=== PATIENT | female | born 1950 | race Caucasian/White ===

== ENCOUNTER 2018-01-02 09:27 | Emergency (ER) | payer MEDICARE, OTHER ==
[2018-01-02 09:45] VITALS: BP 124/91
--- NOTE | 2018-01-02 10:09 | RAD ---
HISTORY: INJURY TO RIGHT ARM COMPARISONS: None VIEWS: 2, Frontal internal rotation and external rotation views of the right humerus FINDINGS: BONE DENSITY: Normal. BONES: There is no displaced fracture. 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 ALIGNMENT: There is no dislocation. SOFT TISSUES: Unremarkable. OTHER FINDINGS: None. IMPRESSION: OSTEOARTHRITIS. NO ACUTE OSSEOUS INJURY. IF SYMPTOMS PERSIST, RECOMMEND REPEAT IMAGING.
--- NOTE | 2018-01-02 10:25 | UC ---
Upper Extremity HPI - HPI Summary HPI Summary: RIGHT ARM PAIN X 2 DAYS JAMMED HER RIGHT ARM AT WORK SHE WAS STAKING BEER PAIN RIGHT UPPER ARM RADIATING TO HER SHOULDER - History of Current Complaint Chief Complaint: UCUpperExtremity Stated Complaint: RIGHT ARM INJURY Time Seen by Provider: 01/02/18 09:47 Hx Obtained From: Patient Onset/Duration: Sudden Onset, Lasting Days - 2, Still Present Severity Initially: Moderate Severity Currently: Moderate Pain Intensity: 10 Location Of Pain: Is Discrete @ - RIGHT UPPER ARM Character: Dull, Aching Aggravating Factor(s): Movement, Lifting, Flexion, Extension Alleviating Factor(s): Rest Associated Signs And Symptoms: Positive: Weakness, Numbness/Tingling. Negative : Swelling, Redness, Bruising, Fever - Allergies/Home Medications Allergies/Adverse Reactions: Allergies Allergy/AdvReac Type Severity Reaction Status Date / Time No Known Allergies Allergy Verified 01/02/18 09:37 Home Medications: Home Medications Calcium Carbonate/Vitamin D3 [Calcium 600 + Vit D Tablet] 1 each PO DAILY [History Confirmed 01/02/18] Citalopram TAB* [CeleXA TAB*] 20 mg PO DAILY 01/02/18 [History Confirmed ] Meloxicam [Mobic] 15 mg PO DAILY 01/02/18 [History Confirmed 01/02/18] Multivitamin [Multivitamins] 1 cap PO DAILY 01/02/18 [History Confirmed 01/02/18 ] raNITIdine HCl [Ranitidine HCl] 150 mg PO BID 01/02/18 [History Confirmed ] PMH/Surg Hx/FS Hx/Imm Hx - Additional Past Medical History Additional PMH: UTERINE CANCER Psychological History: Depression - Surgical History Surgical History: Yes Surgery Procedure, Year, and Place: foot. partial hysterectomy - Family History Known Family History: Negative: Diabetes - Social History Alcohol Use: None Substance Use Type: None Smoking Status (MU): Former Smoker Review of Systems Constitutional: Negative Skin: Negative Eyes: Negative ENT: Negative Respiratory: Negative Is Patient Immunocompromised?: No All Other Systems Reviewed And Are Negative: Yes Physical Exam Triage Information Reviewed: Yes Appearance: Well-Appearing, No Pain Distress, Well-Nourished Vital Signs: Initial Vital Signs Temp 97.6 F 01/02/18 09:39 Pulse 60 01/02/18 09:39 Resp 18 01/02/18 09:39 BP 124/91 01/02/18 09:39 Pulse Ox 99 01/02/18 09:39 Vital Signs Reviewed: Yes Eyes: Positive: Conjunctiva Clear ENT: Positive: Normal ENT inspection, Hearing grossly normal, Pharynx normal Neck: Positive: Supple, Nontender, No Lymphadenopathy Respiratory: Positive: Chest non-tender, Lungs clear, Normal breath sounds Cardiovascular: Positive: RRR, No Murmur, Pulses Normal Neurological: Positive: Other: - RIGHT ARM : + TENDERNESS PROXIMAL RIGHT ARM, NO SWELLING, + TENDERNESS DIFFUSE RIGHT SHOULDER, PAIN WITH SHOULDER ABDUTION AND FLEXION Upper Extremity Course/Dx - Differential Dx/Diagnosis Provider Diagnoses: STRAIN RIGHT SHOUDLER Discharge - Sign-Out/Discharge Documenting (check all that apply): Patient Departure - Discharge Plan Condition: Stable Disposition: HOME Prescriptions: Naproxen [Naproxen 500 mg tab] 500 mg PO BID #20 tablet Patient Education Materials: Arm Pain (ED) Referrals: Madison Gore PA [Primary Care Provider] - 7 Days - Billing Disposition and Condition Condition: STABLE Disposition: Home
== END 2018-01-02 10:26 | disposition home or self-care (01) ==
LOC: UCCORT 09:27
DX: S46.911A Strain of unspecified muscle, fascia and tendon at shoulder and upper arm level, right arm, initial encounter (principal); W23.0XXA Caught, crushed, jammed, or pinched between moving objects, initial encounter; Y93.89 Activity, other specified; Y92.89 Other specified places as the place of occurrence of the external cause; Y99.0 Civilian activity done for income or pay; F32.9 Major depressive disorder, single episode, unspecified; Z85.42 Personal history of malignant neoplasm of other parts of uterus; Z87.891 Personal history of nicotine dependence
CPT/HCPCS: 99213; G0463

== ENCOUNTER 2020-01-24 06:17 | Observation (INO) ==
[~2020-01-24 06:17] MED LIST: Buffered Lidocaine 1% SYRIN 1 ml INTRADERM ONE; Lactated Ringers 1000 ml BAG 1,000 ML IV SCH
[2020-01-24] MEDS ORDERED: ceFAZolin 2 GM PREMIX 2 GM/50 ML BAG ONE (06:59)
[2020-01-24] MEDS ORDERED: Buffered Lidocaine 1% SYRIN 1 ml INTRADERM ONE (06:59)
[2020-01-24] MEDS ORDERED: ROPIVACAINE 5 MG/ML 30 ML BTL (0.5%) ONE ×2 (07:10→07:46)
[2020-01-24] MEDS ORDERED: ceFAZolin 1 GM ADVAN 1 GM ADDV.VIAL IVPB ONE (07:32)
[2020-01-24] MEDS ORDERED: fentaNYL 100 mcg/2 ml 50 MCG/ML VIAL ONE ×2 (07:36→07:42)
[2020-01-24] MEDS ORDERED: Midazolam 2 mg/2 ml VIAL 1 mg/ml 2 ml VIAL (2 mg) ONE (07:36)
[2020-01-24] MEDS ORDERED: Propofol 10 MG/ML 20 ML BTL ONE ×2 (07:39→08:20)
[2020-01-24] MEDS ORDERED: Dexamethasone IV 4 MG/ML VIAL 1 ml VIAL ONE (07:40)
[2020-01-24] MEDS ORDERED: Ondansetron 4 mg VIAL 2 MG/ML 2 ml VIAL ONE (07:40)
[2020-01-24] MEDS ORDERED: Lidocaine 2% PF 5 ML VIAL ONE (07:40)
[2020-01-24] MEDS ORDERED: Rocuronium 50 mg VIAL 10 mg/ml 5 ml VIAL (50 mg) ONE (07:40)
[2020-01-24] MEDS ORDERED: Metoclopramide 5 MG/ML VIAL (10 mg) ONE (07:40)
[2020-01-24] MEDS ORDERED: Propofol 10 mg/ml 100 ML BTL 0 ML ONE (07:48)
[2020-01-24] MEDS ORDERED: Acetaminophen IV 1 GM/100ML 100 ML ONE (09:46)
[2020-01-24] MEDS ORDERED: Ondansetron 4 mg VIAL 2 MG/ML 2 ml VIAL IV PRN (10:51)
[2020-01-24] MEDS ORDERED: Ondansetron ODT 4 mg TAB 4 MG TAB PO PRN (10:51)
[2020-01-24] MEDS ORDERED: diPHENhydraMINE IV 50 MG/ML 1 ml VIAL (BENADRYL) IV PRN (10:51)
[2020-01-24] MEDS ORDERED: Lactulose 30 ml UDC PO PRN (10:51)
[2020-01-24] MEDS ORDERED: Morphine 2 MG/ML SYRINGE IV PRN (10:51)
[2020-01-24] MEDS ORDERED: diPHENhydraMINE 25 mg TAB PO PRN (10:51)
[2020-01-24] MEDS ORDERED: Magnesium Hydroxide LIQ 30 ML UDC PO PRN (10:51)
[2020-01-24] MEDS ORDERED: oxyCODONE/Acetamin 5/325 mg TAB PO PRN (10:51)
[2020-01-24] MEDS ORDERED: oxyCODONE/Acetamin 5/325 mg TAB ONE (11:31)
[2020-01-24] MEDS ORDERED: Prochlorperazine 5 mg/ml 2 ml VIAL (10 mg) IV PRN (11:48)
[2020-01-24] MEDS ORDERED: HYDROmorphone 1 MG/1 ML SYRINGE IV PRN (11:48)
[2020-01-24] MEDS ORDERED: Naloxone 0.4 mg VIAL 0.4 mg/ml 1 ml VIAL IV PRN (11:48)
[2020-01-24] MEDS: Lactated Ringers 1000 ml BAG 1,000 ML IV SCH (12:21)
[2020-01-24] MEDS: oxyCODONE/Acetamin 5/325 mg TAB PO PRN ×2 (17:21→21:01)
[2020-01-24] MEDS: ceFAZolin 1 GM ADVAN 1 GM in NS 0.9% 50 ML 50 ML IVPB SCH (17:22)
[2020-01-24] MEDS: Magnesium Hydroxide LIQ 30 ML UDC PO SCH (21:01)
[2020-01-25] MEDS ORDERED: Polyethylene Glycol 3350 17 GM PACKET PO PRN (00:01)
[2020-01-25] MEDS: Lactated Ringers 1000 ml BAG 1,000 ML IV SCH (00:59)
[2020-01-25] MEDS: ceFAZolin 1 GM ADVAN 1 GM in NS 0.9% 50 ML 50 ML IVPB SCH ×2 (00:59→08:40)
[2020-01-25 04:48] LABS: Hematocrit 32 % (35-47); Hemoglobin 10.7 g/dL (12.0-16.0); Mean Platelet Volume 8.3 fL (7.4-10.4); Platelet Count 260 10^3/uL (150-450)
[2020-01-25 04:57] LABS: BUN/Creatinine Ratio 22.6 (8-20); Calcium 8.5 mg/dL (8.6-10.3); EGFR African American 137.6 (>60); EGFR Non-African American 113.7 (>60)
[2020-01-25] MEDS: oxyCODONE/Acetamin 5/325 mg TAB PO PRN ×2 (06:09→10:51)
[2020-01-25] MEDS ORDERED: Vitamin THERAPEUTIC TAB PO SCH (09:00)
[2020-01-25] MEDS: Magnesium Hydroxide LIQ 30 ML UDC PO SCH (09:07)
[2020-01-25 12:02] VITALS: BP 127/55
== END 2020-01-25 13:00 | disposition home or self-care (01) ==
LOC: OR 06:17 → SSU 06:17
PROVIDERS: ADMIT Physician Assistant Surgical; ATTEND Orthopaedic Surgery Adult Reconstructive Orthopaedic Surgery

== ENCOUNTER 2022-01-11 11:45 | Observation (INO) ==
[~2022-01-11 11:45] MED LIST changes: +Acetaminophen IV 1 GM/100ML 100 ML IV ONE; +Bupivacaine-MPF SPINAL 7.5 MG/ML - 2ML AMP ONE; +Famotidine IV 10 MG/ML 2 ml VIAL (20 mg) IV ONE; +Midazolam 5 mg/5 ml VIAL 1 mg/ml 5 ml VIAL (5 mg) ONE; +Ondansetron 4 mg VIAL 2 MG/ML 2 ml VIAL ONE; +ROPIVACAINE 5 MG/ML 30 ML BTL (0.5%) ONE; +fentaNYL 100 mcg/2 ml 50 MCG/ML VIAL ONE
[2022-01-11] MEDS ORDERED: Famotidine IV 10 MG/ML 2 ml VIAL (20 mg) ONE (12:11)
[2022-01-11] MEDS ORDERED: ceFAZolin 2 GM in NS PREMIX 2 GM/100 ML BAG IVPB ONE (12:11)
[2022-01-11] MEDS ORDERED: fentaNYL 100 mcg/2 ml 50 MCG/ML VIAL ONE ×2 (13:43→18:58)
[2022-01-11] MEDS ORDERED: Midazolam 2 mg/2 ml VIAL 1 mg/ml 2 ml VIAL (2 mg) ONE (13:43)
[2022-01-11] MEDS ORDERED: Lidocaine 1% MPF 5 ML VIAL ONE (13:49)
[2022-01-11] MEDS ORDERED: ROPIVACAINE 5 MG/ML 30 ML BTL (0.5%) ONE ×2 (13:49→16:15)
[2022-01-11] MEDS ORDERED: Lactulose 30 ml UDC PO PRN (15:42)
[2022-01-11] MEDS ORDERED: Ondansetron ODT 4 mg TAB 4 MG TAB PO PRN (15:42)
[2022-01-11] MEDS ORDERED: Magnesium Hydroxide LIQ 30 ML UDC PO PRN (15:42)
[2022-01-11] MEDS ORDERED: Morphine 2 MG/ML SYRINGE IV PRN (15:42)
[2022-01-11] MEDS ORDERED: Ondansetron 4 mg VIAL 2 MG/ML 2 ml VIAL IV PRN ×2 (15:42→16:38)
[2022-01-11] MEDS ORDERED: Lactated Ringers 1000 ml BAG 1,000 ML IV SCH (16:00)
[2022-01-11] MEDS ORDERED: HYDROmorphone 0.5 MG/0.5 ML SYRINGE ONE ×2 (16:04→16:10)
[2022-01-11] MEDS ORDERED: Lidocaine 2% PF 5 ML VIAL ONE (16:12)
[2022-01-11] MEDS ORDERED: Rocuronium 50 mg VIAL 10 mg/ml 5 ml VIAL (50 mg) ONE (16:12)
[2022-01-11] MEDS ORDERED: Phenylephrine IV 10 MG/ML 1 ml VIAL ONE (16:12)
[2022-01-11] MEDS ORDERED: Dexamethasone IV 4 MG/ML VIAL 1 ml VIAL ONE (16:12)
[2022-01-11] MEDS ORDERED: Sevoflurane BOTTLE ONE (16:12)
[2022-01-11] MEDS ORDERED: Propofol 10 MG/ML 20 ML BTL ONE (16:12)
[2022-01-11] MEDS ORDERED: Naloxone 0.4 mg VIAL 0.4 mg/ml 1 ml VIAL IV PRN (16:38)
[2022-01-11] MEDS: fentaNYL 100 mcg/2 ml 50 MCG/ML VIAL IV PRN ×4 (18:59→19:10)
[2022-01-11] MEDS: DULoxetine DR 30 mg CAP PO SCH (22:01)
[2022-01-11] MEDS: Magnesium Hydroxide LIQ 30 ML UDC PO SCH (22:01)
[2022-01-11] MEDS: ceFAZolin 1 GM ADVAN 1 GM in NS 0.9% 50 ML 50 ML IVPB SCH (23:20)
[2022-01-12 05:26] LABS: Hematocrit 34 % (35-47); Hemoglobin 11.9 g/dL (12.0-16.0); Mean Platelet Volume 8.1 fL (7.4-10.4); Platelet Count 253 10^3/uL (150-450)
[2022-01-12 05:46] LABS: Calcium 8.4 mg/dL (8.6-10.3); Potassium 4.5 mmol/L (3.5-5.0); eGFR CKD-EPI 92.2 (>60)
[2022-01-12] MEDS: Magnesium Hydroxide LIQ 30 ML UDC PO SCH (07:49)
[2022-01-12] MEDS: DULoxetine DR 30 mg CAP PO SCH (07:49)
[2022-01-12] MEDS: ceFAZolin 1 GM ADVAN 1 GM in NS 0.9% 50 ML 50 ML IVPB SCH ×2 (08:10→14:31)
[2022-01-12] MEDS ORDERED: Vitamin THERAPEUTIC TAB PO SCH (09:00)
[2022-01-12 11:58] VITALS: BP 97/63
== END 2022-01-12 15:35 | disposition home or self-care (01) ==
LOC: SSU 11:45 → OR 11:45
PROVIDERS: ADMIT Orthopaedic Surgery Adult Reconstructive Orthopaedic Surgery; ATTEND Orthopaedic Surgery Adult Reconstructive Orthopaedic Surgery